=== PATIENT | female | born 1965 | race Caucasian/White ===

== ENCOUNTER 2018-04-28 21:00 | Emergency (ER) | payer OTHER ==
[~2018-04-28] VITALS: Ht 149.9 cm; Wt 87.1 kg
[~2018-04-28 21:00] MED LIST: ACETAMINOPHEN-1 EAC1 PO; AMOXICILLIN500 M1 PO; ASPIR-TRIN325 MG PO; BLOOD PRESSURE MED; CHOLESTEROL MED; COLACE100 MG PO; LEVOTHYROXINE0.05 MG PO; LIPITOR 20 MG T20 M1 PO; NOHOMEMEDICATIONS; NORCO 5-325 TA1 EACH PO; NORVASC5 MG PO; PRINIVIL20 MG PO; PROAIR HFA8.5 GM PO; PROMETHAZINE-C120 ML PO; ROBAXIN500 MG PO; TESSALON PERLE100 MG PO; VENTOLIN HFA 1818 GM INH; XARELTO10 MG PO
[2018-04-28] MEDS ORDERED: KEFLEX500 M1 PO (21:58)
[2018-04-28] MEDS ORDERED: MEDROLDOSEPACK PO (21:58)
[2018-04-28 22:13] VITALS: BP 152/56
== END 2018-04-28 22:15 | disposition home or self-care (01) ==
LOC: M.ERS 21:00
DX: J02.0 Streptococcal pharyngitis (principal); M79.671 Pain in right foot; M67.432 Ganglion, left wrist; E11.9 Type 2 diabetes mellitus without complications; I10 Essential (primary) hypertension; E78.5 Hyperlipidemia, unspecified; F17.210 Nicotine dependence, cigarettes, uncomplicated

== ENCOUNTER 2018-06-23 16:07 | Emergency (ER) | payer OTHER ==
[~2018-06-23] VITALS: Ht 152.4 cm; Wt 84.4 kg
[~2018-06-23 16:07] MED LIST changes: +KEFLEX500 M1 PO; +MEDROLDOSEPACK PO
[2018-06-23 16:29] LABS: URINE BILIRUBIN NEGATIVE (Negative); URINE BLOOD TRACE (Negative); URINE CLARITY CLEAR; URINE COLOR YELLOW; URINE GLUCOSE-RANDOM NEGATIVE (Negative); URINE KETONES NEGATIVE (Negative); URINE LEUKOCYTES-REFLEX NEGATIVE (Negative); URINE NITRITE-REFLEX NEGATIVE (Negative); URINE PROTEIN NEGATIVE (Negative); URINE SPECIFIC GRAVITY >= 1.030 (1.005-1.030); URINE UROBILINOGEN 0.2 E.U./dl (0.2-1.0)
[2018-06-23 16:43] LABS: BACTERIA-REFLEX 1-9 Few /HPF (None Seen); CASTS None Seen /LPF (None Seen); CRYSTALS None Seen /LPF (None Seen); SQUAMOUS >10 Many /LPF (0-3); URINE RBC 0-2 Rare /HPF (0-2); URINE WBC-REFLEX 0-5 Rare /HPF (0-5)
[2018-06-23] MEDS ORDERED: NAPROSYN500 MG PO (16:50)
[2018-06-23] MEDS ORDERED: ZYRTEC10 M4 PO (16:50)
[2018-06-23] MEDS ORDERED: ROBAXIN500 MG PO (16:54)
[2018-06-23 17:01] VITALS: BP 150/55
== END 2018-06-23 17:02 | disposition home or self-care (01) ==
LOC: M.ERS 16:07
PROVIDERS: Nurse Practitioner Family
DX: M54.5 Low back pain (principal); I10 Essential (primary) hypertension; E78.5 Hyperlipidemia, unspecified; F17.210 Nicotine dependence, cigarettes, uncomplicated

== ENCOUNTER 2018-11-03 15:19 | Emergency (ER) | payer OTHER ==
[~2018-11-03] VITALS: Ht 152.4 cm; Wt 88.0 kg
[~2018-11-03 15:19] MED LIST changes: +NAPROSYN500 MG PO; +ZYRTEC10 M4 PO
[2018-11-03 16:32] LABS: INFLUENZA A ANTIGEN None Detected (None Detect); INFLUENZA B ANTIGEN None Detected (None Detect)
[2018-11-03] MEDS ORDERED: MEDROLDOSEPACK PO (18:02)
[2018-11-03] MEDS ORDERED: PENICILLIN VK500 MG PO (18:02)
[2018-11-03] MEDS ORDERED: VENTOLIN HFA 1818 GM INH (18:02)
[2018-11-03 18:10] VITALS: BP 119/38
== END 2018-11-03 18:11 | disposition home or self-care (01) ==
LOC: M.ERS 15:19
PROVIDERS: Nurse Practitioner Family
DX: J40 Bronchitis, not specified as acute or chronic (principal); I10 Essential (primary) hypertension; E78.5 Hyperlipidemia, unspecified; F17.210 Nicotine dependence, cigarettes, uncomplicated

== ENCOUNTER 2019-04-15 18:16 | Emergency (ER) | payer OTHER ==
[~2019-04-15] VITALS: Ht 152.4 cm; Wt 87.1 kg
[~2019-04-15 18:16] MED LIST changes: +PENICILLIN VK500 MG PO
[2019-04-15 19:13] LABS: ABSOLUTE EOSINOPHILS 0.2 thou/uL (0.0-0.7); ABSOLUTE LYMPHOCYTES 3.3 thou/uL (0.8-5.3); ABSOLUTE MONOCYTES 0.6 thou/uL (0.0-1.2); BASOPHILS 0.4 %; EOSINOPHILS 2.1 %; HEMOGLOBIN 15.1 gm/dL (12.0-15.0); LYMPHOCYTES 40.3 %; MCH 32.7 pg (26.0-34.0); MCHC 33.7 g/dL (28.0-37.0); MONOCYTES 7.8 %; MPV 8.8 fl. (7.2-11.1); NUCLEATED RBCS 0 /100WBC; PLATELET COUNT* 237 thou/uL (150-400); POLYS 49.4 %; RBC 4.64 mil/uL (4.20-5.00); RDW-CV 14.1 % (10.5-14.5); WBC 8.1 thou/uL (4.0-11.0)
[2019-04-15 19:22] LABS: CALCIUM 9.1 mg/dL (8.5-10.1); CREATININE 0.8 mg/dL (0.6-1.3); POTASSIUM 4.1 mmol/L (3.5-5.1)
[2019-04-15 19:22] LABS: URINE BILIRUBIN NEGATIVE (Negative); URINE BLOOD NEGATIVE (Negative); URINE CLARITY CLEAR; URINE COLOR YELLOW; URINE GLUCOSE-RANDOM NEGATIVE (Negative); URINE KETONES NEGATIVE (Negative); URINE LEUKOCYTES-REFLEX NEGATIVE (Negative); URINE NITRITE-REFLEX NEGATIVE (Negative); URINE PROTEIN NEGATIVE (Negative); URINE SPECIFIC GRAVITY >= 1.030 (1.005-1.030); URINE UROBILINOGEN 0.2 E.U./dl (0.2-1.0)
[2019-04-15 19:27] LABS: ALBUMIN 3.7 g/dL (3.4-5.0); TOTAL BILIRUBIN 0.3 mg/dL (<0.1-1.0); TOTAL PROTEIN 7.6 g/dL (6.4-8.2)
[2019-04-15 20:07] LABS: ESR (SEDRATE) 8 mm/hr (0-30)
[2019-04-15 20:48] VITALS: BP 119/61
== END 2019-04-15 20:49 | disposition home or self-care (01) ==
LOC: M.ERS 18:16
PROVIDERS: Nurse Practitioner Family
DX: R51 Headache (principal); E86.0 Dehydration; F17.210 Nicotine dependence, cigarettes, uncomplicated; I10 Essential (primary) hypertension; E11.9 Type 2 diabetes mellitus without complications; E78.5 Hyperlipidemia, unspecified

== ENCOUNTER 2019-06-14 21:52 | Emergency (ER) | payer OTHER ==
[~2019-06-14] VITALS: Ht 152.4 cm; Wt 87.1 kg
[2019-06-14] MEDS ORDERED: FLEXERIL PO (22:12)
[2019-06-14] MEDS ORDERED: NORCO 5-325 TA1 EAC1 PO (22:12)
[2019-06-14 22:19] VITALS: BP 148/62
== END 2019-06-14 22:19 | disposition home or self-care (01) ==
LOC: M.ERS 21:52
DX: S16.1XXA Strain of muscle, fascia and tendon at neck level, initial encounter (principal); F17.210 Nicotine dependence, cigarettes, uncomplicated; I10 Essential (primary) hypertension; E11.9 Type 2 diabetes mellitus without complications; E78.5 Hyperlipidemia, unspecified; X50.0XXA Overexertion from strenuous movement or load, initial encounter; Y92.89 Other specified places as the place of occurrence of the external cause; Y99.0 Civilian activity done for income or pay; Y99.8 Other external cause status

== ENCOUNTER 2019-07-08 15:31 | Emergency (ER) | payer OTHER ==
[~2019-07-08] VITALS: Ht 152.4 cm; Wt 87.1 kg
[~2019-07-08 15:31] MED LIST changes: +FLEXERIL PO; +NORCO 5-325 TA1 EAC1 PO
[2019-07-08 16:05] LABS: ABSOLUTE BASOPHILS 0.1 thou/uL (0.0-0.2); ABSOLUTE EOSINOPHILS 0.2 thou/uL (0.0-0.7); ABSOLUTE LYMPHOCYTES 2.7 thou/uL (0.8-5.3); ABSOLUTE MONOCYTES 0.6 thou/uL (0.0-1.2); ABSOLUTE NEUTROPHILS 4.5 thou/uL (1.6-8.1); BASOPHILS 1.1 %; EOSINOPHILS 2.1 %; HEMATOCRIT 44.1 % (37.0-47.0); HEMOGLOBIN 14.9 gm/dL (12.0-15.0); LYMPHOCYTES 33.2 %; MCH 33.2 pg (26.0-34.0); MCHC 33.7 g/dL (28.0-37.0); MCV 98.5 fL (80.0-100.0); MONOCYTES 7.9 %; MPV 8.6 fl. (7.2-11.1); NUCLEATED RBCS 0 /100WBC; PLATELET COUNT* 224 thou/uL (150-400); POLYS 55.7 %; RBC 4.48 mil/uL (4.20-5.00)
[2019-07-08 16:12] LABS: POTASSIUM 4.2 mmol/L (3.5-5.1)
[2019-07-08 16:17] LABS: ALBUMIN 3.6 g/dL (3.4-5.0); TOTAL BILIRUBIN 0.3 mg/dL (<0.1-1.0); TOTAL PROTEIN 7.2 g/dL (6.4-8.2)
[2019-07-08] MEDS ORDERED: NORCO 5-325 TA1 EAC1 PO (17:03)
[2019-07-08 17:10] VITALS: BP 125/80
== END 2019-07-08 17:11 | disposition home or self-care (01) ==
LOC: M.ERS 15:31
PROVIDERS: Family Medicine
DX: M25.561 Pain in right knee (principal); I10 Essential (primary) hypertension; E78.5 Hyperlipidemia, unspecified; F17.210 Nicotine dependence, cigarettes, uncomplicated

== ENCOUNTER → 2019-07-09 | Outpatient (CLI) | payer OTHER ==
[2019-07-10 02:06] LABS: GLYCOHEMOGLOBIN (HGB A1C) 5.8 % (4.8-5.6)
== END ==
LOC: M.LAB 09:35
PROVIDERS: Nurse Practitioner Family
DX: R73.09 Other abnormal glucose (principal); E03.9 Hypothyroidism, unspecified; Z86.39 Personal history of other endocrine, nutritional and metabolic disease

== ENCOUNTER 2020-03-03 16:49 | Emergency (ER) | payer OTHER ==
[~2020-03-03] VITALS: Ht 154.9 cm; Wt 83.5 kg
[2020-03-03 17:20] LABS: ABSOLUTE BASOPHILS 0.1 thou/uL (0.0-0.2); ABSOLUTE EOSINOPHILS 0.2 thou/uL (0.0-0.7); ABSOLUTE LYMPHOCYTES 3.3 thou/uL (0.8-5.3); ABSOLUTE MONOCYTES 0.7 thou/uL (0.0-1.2); ABSOLUTE NEUTROPHILS 4.5 thou/uL (1.6-8.1); BASOPHILS 1.2 %; EOSINOPHILS 2.4 %; HEMATOCRIT 42.2 % (37.0-47.0); HEMOGLOBIN 14.6 gm/dL (12.0-15.0); LYMPHOCYTES 37.2 %; MCH 33.9 pg (26.0-34.0); MCHC 34.6 g/dL (28.0-37.0); MCV 98.2 fL (80.0-100.0); MONOCYTES 8.3 %; MPV 9.3 fl. (7.2-11.1); NUCLEATED RBCS 0 /100WBC; PLATELET COUNT* 217 thou/uL (150-400); POLYS 50.9 %; RDW-CV 14.4 % (10.5-14.5); WBC 8.9 thou/uL (4.0-11.0)
[2020-03-03 17:38] LABS: ALBUMIN 3.9 g/dL (3.4-5.0); CALCIUM 9.3 mg/dL (8.5-10.1); CREATININE 0.7 mg/dL (0.6-1.3); MAGNESIUM 1.9 mg/dL (1.8-2.4); TOTAL BILIRUBIN 0.4 mg/dL (<0.1-1.0); TOTAL PROTEIN 7.7 g/dL (6.4-8.2)
[2020-03-03 18:24] VITALS: BP 170/64
--- NOTE | 2020-03-04 10:16 | EKG ---
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
== END 2020-03-03 18:26 | disposition home or self-care (01) ==
LOC: M.ERS 16:49
PROVIDERS: Emergency Medicine Emergency Medical Services
DX: S50.12XA Contusion of left forearm, initial encounter (principal); S30.1XXA Contusion of abdominal wall, initial encounter; R00.2 Palpitations; I10 Essential (primary) hypertension; E11.9 Type 2 diabetes mellitus without complications; E78.5 Hyperlipidemia, unspecified; F17.210 Nicotine dependence, cigarettes, uncomplicated; X58.XXXA Exposure to other specified factors, initial encounter; Y93.89 Activity, other specified; Y92.89 Other specified places as the place of occurrence of the external cause; Y99.8 Other external cause status

== ENCOUNTER → 2020-04-06 | Outpatient (CLI) | payer OTHER ==
--- NOTE | 2020-04-06 11:27 | 2DMMODE ---
[place] [address] 2 D/M-MODE ECHOCARDIOGRAM Name: PHILLIP LOPEZ Room: [facility]#: [id number] Admission: 04/06/20 Attend Phys: Dung Reddy MD Discharge: Date of : 61 Date of Service: 04/06/20 1126 Report #: [id number] THIS REPORT FOR: cc: Jessy Zee Linda J. DO Holkins,Mariano Ball MD [facility] ~ APPROVED REPORT Study performed: 04/06/2020 08:49:53 EXAM: Comprehensive 2D, Doppler, and color-flow Echocardiogram Patient Location: Out-Patient BSA: 1.87 HR: 75 bpm Other Information Study Quality: Fair Indications Dyspnea 2D Dimensions IVSd: 11.25 (7-11mm) LVOT Diam: 19.66 (18-24mm) LVDd: 43.65 mm PWd: 9.21 (7-11mm) Ascending Ao: 26.62 (22-36mm) LVDs: 27.17 (25-40mm) Aortic Root: 25.84 mm Volumes Left Atrial Volume (Systole) LA ESV Index: 14.80 mL/m2 Aortic Valve AoV Peak Mykel.: 1.73 m/s AO Peak Gr.: 11.96 mmHg LVOT Max P.80 mmHg AO Mean Gr.: 6.65 mmHg LVOT Mean P.51 mmHg LVOT Max V: 1.10 m/s AO V2 VTI: 37.73 cm LVOT Mean V: 0.74 m/s FAWN (VTI): 2.13 cm2 LVOT V1 VTI: 26.46 cm Mitral Valve E/A Ratio: 1.60 [place] [address] 2 D/M-MODE ECHOCARDIOGRAM Name: PHILLIP LOPEZ Room: [facility]#: [id number] Admission: 04/06/20 Attend Phys: Dung Reddy MD Discharge: Date of : 61 Date of Service: 04/06/20 1126 Report #: [id number] MV Decel. Time: 178.19 ms MV E Max Mykel.: 1.13 m/s MV PHT: 51.67 ms MVA (PHT): 4.26 cm2 TDI E/Lateral E': 7.53 E/Medial E': 8.69 Medial E' Mykel.: 0.13 m/s Lateral E' Mykel.: 0.15 m/s Pulmonary Valve PV Peak Mykel.: 1.19 m/s PV Peak Gr.: 5.66 mmHg Left Ventricle The left ventricle is normal size. There is normal LV segmental wall motion. There is normal left ventricular wall thickness. Left ventricular systolic function is normal. The left ventricular ejection fraction is within the normal range. LVEF is 55-60%. The left ventricular diastolic function is normal. Right Ventricle The right ventricle is normal size. The right ventricular systolic function is normal. Atria The left atrium size is normal. The right atrium size is normal. Aortic Valve Mild aortic valve sclerosis. No aortic regurgitation is present. There is no aortic valvular stenosis. Mitral Valve Mild mitral annular calcification. There is no mitral valve regurgitation noted. No evidence of mitral valve stenosis. Tricuspid Valve The tricuspid valve is normal in structure. There is no tricuspid valve regurgitation noted. Pulmonic Valve The pulmonary valve is normal in structure. There is no pulmonic valvular regurgitation. Great Vessels The aortic root is normal in size. IVC [place] [address] 2 D/M-MODE ECHOCARDIOGRAM Name: BESSIE LOPEZKIE Drew Room: [facility]#: [id number] Admission: 04/06/20 Attend Phys: Dung Reddy MD Discharge: Date of : 61 Date of Service: 04/06/20 1126 Report #: [id number] collapses >50% with inspiration. Pericardium There is no pericardial effusion. <Conclusion> The left ventricle is normal size. Left ventricular systolic function is normal. The left ventricular ejection fraction is within the normal range. LVEF is 55-60%. The left ventricular diastolic function is normal. The right ventricle is normal size. The left atrium size is normal. Mild aortic valve sclerosis. No aortic regurgitation is present. There is no aortic valvular stenosis. Mild mitral annular calcification. There is no mitral valve regurgitation noted. No evidence of mitral valve stenosis. The tricuspid valve is normal in structure. IVC is normal in size and collapses >50% with inspiration. There is no pericardial effusion. <ELECTRONICALLY SIGNED> By: Mariano Max MD, FACC 04/06/20 1126 1126 1126 Mariano Max MD, FACC /INF
== END ==
LOC: M.CRD 08:47
PROVIDERS: ATTEND Internal Medicine Cardiovascular Disease
DX: I08.0 Rheumatic disorders of both mitral and aortic valves (principal)

== ENCOUNTER → 2020-04-20 | Outpatient (CLI) | payer OTHER ==
[2020-04-20 12:03] LABS: ABSOLUTE EOSINOPHILS 0.1 thou/uL (0.0-0.7); ABSOLUTE LYMPHOCYTES 2.5 thou/uL (0.8-5.3); EOSINOPHILS 1.6 %; MPV 8.6 fl. (7.2-11.1); RDW-CV 14.5 % (10.5-14.5)
[2020-04-20 12:05] LABS: ABSOLUTE BASOPHILS 0.1 thou/uL (0.0-0.2); ABSOLUTE MONOCYTES 0.5 thou/uL (0.0-1.2); ABSOLUTE NEUTROPHILS 5.3 thou/uL (1.6-8.1); HEMOGLOBIN 14.9 gm/dL (12.0-15.0); LYMPHOCYTES 29.4 %; MCH 34.4 pg (26.0-34.0); MCHC 34.6 g/dL (28.0-37.0); MCV 99.3 fL (80.0-100.0); MONOCYTES 5.6 %; NUCLEATED RBCS 0 /100WBC; PLATELET COUNT* 234 thou/uL (150-400); POLYS 62.4 %; RBC 4.33 mil/uL (4.20-5.00); WBC 8.5 thou/uL (4.0-11.0)
[2020-04-20 12:23] LABS: ALBUMIN 3.6 g/dL (3.4-5.0); CREATININE 0.7 mg/dL (0.6-1.3); POTASSIUM 4.5 mmol/L (3.5-5.1); TOTAL BILIRUBIN 0.3 mg/dL (<0.1-1.0); TOTAL PROTEIN 7.4 g/dL (6.4-8.2)
[2020-04-21 02:06] LABS: GLYCOHEMOGLOBIN (HGB A1C) 5.9 % (4.8-5.6)
== END ==
LOC: M.LAB 11:36
PROVIDERS: ATTEND Nurse Practitioner Family
DX: L81.9 Disorder of pigmentation, unspecified (principal); I10 Essential (primary) hypertension; E03.9 Hypothyroidism, unspecified; R73.03 Prediabetes

== ENCOUNTER → 2020-05-09 | Outpatient (CLI) | payer OTHER ==
[2020-05-09 11:27] LABS: CHOLESTEROL 282 mg/dL (<200); HDL CHOLESTEROL 31 mg/dL (>40); LDL CHOLESTEROL 219 mg/dL (<100); TC:HDL 9.1 Ratio (Not establshd); TRIGLYCERIDE 161 mg/dL (<150); VLDL 32 mg/dL (<40)
[2020-05-09 11:30] LABS: SERUM ASSESSMENT Clear
== END ==
LOC: M.LAB 11:02
PROVIDERS: ATTEND Registered Nurse
DX: R06.02 Shortness of breath (principal)

== ENCOUNTER → 2020-06-08 | Outpatient (CLI) | payer OTHER ==
[2020-06-08 10:08] LABS: ABSOLUTE BASOPHILS 0.1 thou/uL (0.0-0.2); ABSOLUTE EOSINOPHILS 0.2 thou/uL (0.0-0.7); ABSOLUTE LYMPHOCYTES 2.7 thou/uL (0.8-5.3); ABSOLUTE MONOCYTES 0.6 thou/uL (0.0-1.2); ABSOLUTE NEUTROPHILS 4.4 thou/uL (1.6-8.1); BASOPHILS 1.3 %; EOSINOPHILS 2.6 %; HEMATOCRIT 43.8 % (37.0-47.0); HEMOGLOBIN 14.9 gm/dL (12.0-15.0); LYMPHOCYTES 33.2 %; MCH 33.8 pg (26.0-34.0); MCHC 34.1 g/dL (28.0-37.0); MCV 99.3 fL (80.0-100.0); MONOCYTES 7.9 %; NUCLEATED RBCS 0 /100WBC; PLATELET COUNT* 218 thou/uL (150-400); RBC 4.41 mil/uL (4.20-5.00); RDW-CV 14.1 % (10.5-14.5); WBC 8.1 thou/uL (4.0-11.0)
[2020-06-08 10:34] LABS: % SATURATION 21 % (20-39); IRON 73 ug/dL (50-175)
== END ==
LOC: M.LAB 09:51
PROVIDERS: ATTEND Nurse Practitioner Family
DX: K92.1 Melena (principal)

== ENCOUNTER 2020-10-24 18:16 | Emergency (ER) | payer OTHER ==
[~2020-10-24] VITALS: Ht 149.9 cm; Wt 84.8 kg
[2020-10-24] MEDS ORDERED: ZESTRIL20 MG PO (18:25)
[2020-10-24] MEDS ORDERED: CHOLESTEROL MED (18:26)
[2020-10-24 19:06] LABS: ABSOLUTE BASOPHILS 0.1 thou/uL (0.0-0.2); ABSOLUTE EOSINOPHILS 0.4 thou/uL (0.0-0.7); ABSOLUTE MONOCYTES 0.7 thou/uL (0.0-1.2); ABSOLUTE NEUTROPHILS 5.6 thou/uL (1.6-8.1); BASOPHILS 1.1 %; EOSINOPHILS 3.3 %; HEMATOCRIT 43.7 % (37.0-47.0); HEMOGLOBIN 14.6 gm/dL (12.0-15.0); LYMPHOCYTES 37.3 %; MCH 32.6 pg (26.0-34.0); MCHC 33.3 g/dL (28.0-37.0); MCV 97.9 fL (80.0-100.0); MONOCYTES 6.7 %; MPV 8.6 fl. (7.2-11.1); NUCLEATED RBCS 0 /100WBC; PLATELET COUNT* 229 thou/uL (150-400); POLYS 51.6 %; RBC 4.46 mil/uL (4.20-5.00); RDW-CV 14.1 % (10.5-14.5); WBC 10.8 thou/uL (4.0-11.0)
[2020-10-24 19:15] LABS: CALCIUM 9.5 mg/dL (8.5-10.1); CREATININE 0.8 mg/dL (0.6-1.3); POTASSIUM 4.6 mmol/L (3.5-5.1)
[2020-10-24 19:17] LABS: APTT 24.8 Seconds (25.0-31.3); PROTIME 10.4 Seconds (9.20-11.50)
[2020-10-24 19:26] LABS: ALBUMIN 3.7 g/dL (3.4-5.0); TOTAL BILIRUBIN 0.2 mg/dL (<0.1-1.0); TOTAL PROTEIN 7.5 g/dL (6.4-8.2)
[2020-10-24 19:55] LABS: BE -0.2 mmol/L (-2 to +3); PCO2 42.9 mmHg (35.0-45.0); PO2 76.8 mmHg (75.0-100.0); pH 7.383 (7.340-7.450)
[2020-10-24 20:18] VITALS: BP 118/72
--- NOTE | 2020-10-25 10:09 | EKG ---
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[place] : 1965 Requested By: Chi Cha Order Number: [id number] MD: Mariano Max Measurements Intervals [place] Rate: 71 P: 77 [place]: 151 QRS: 69 QRSD: 98 T: 51 QT: 416 QTc: 453 Interpretive Statements Sinus rhythm Baseline wander in lead(s) V2,V6 Compared to ECG 03/03/2020 16:56:18 No significant changes Electronically Signed On 10-25-2020 10:09:09 [employer]NALY[employer] by Mariano Max [email or web address] <ELECTRONICALLY SIGNED> By: Mariano Max MD, [facility] 10/25/20 1009 1827 182 Mariano Max MD, [facility] /EPI
== END 2020-10-24 20:18 | disposition home or self-care (01) ==
LOC: M.ERS 18:16
PROVIDERS: Family Medicine; Personal Emergency Response Attendant
DX: R42 Dizziness and giddiness (principal); Z77.128 Contact with and (suspected) exposure to other hazards in the physical environment; I10 Essential (primary) hypertension; E78.5 Hyperlipidemia, unspecified; F17.210 Nicotine dependence, cigarettes, uncomplicated

== ENCOUNTER → 2020-12-19 | Outpatient (CLI) | payer OTHER ==
[~2020-12-19] MED LIST changes: +ZESTRIL20 MG PO
[2020-12-19 13:15] LABS: ABSOLUTE BASOPHILS 0.1 thou/uL (0.0-0.2); ABSOLUTE EOSINOPHILS 0.2 thou/uL (0.0-0.7); ABSOLUTE LYMPHOCYTES 2.8 thou/uL (0.8-5.3); ABSOLUTE MONOCYTES 0.3 thou/uL (0.0-1.2); ABSOLUTE NEUTROPHILS 5.3 thou/uL (1.6-8.1); BASOPHILS 1.4 %; EOSINOPHILS 2.1 %; HEMATOCRIT 43.9 % (37.0-47.0); HEMOGLOBIN 14.7 gm/dL (12.0-15.0); MCH 32.8 pg (26.0-34.0); MCHC 33.6 g/dL (28.0-37.0); MCV 97.6 fL (80.0-100.0); MONOCYTES 3.5 %; MPV 8.4 fl. (7.2-11.1); NUCLEATED RBCS 0 /100WBC; PLATELET COUNT* 197 thou/uL (150-400); RDW-CV 14.7 % (10.5-14.5); WBC 8.7 thou/uL (4.0-11.0)
[2020-12-19 13:34] LABS: ALBUMIN 3.4 g/dL (3.4-5.0); CALCIUM 9.4 mg/dL (8.5-10.1); CREATININE 0.7 mg/dL (0.6-1.3); MAGNESIUM 1.8 mg/dL (1.8-2.4); POTASSIUM 3.9 mmol/L (3.5-5.1); TOTAL BILIRUBIN 0.3 mg/dL (<0.1-1.0); TOTAL PROTEIN 7.4 g/dL (6.4-8.2)
[2020-12-19 14:23] LABS: ESR (SEDRATE) 23 mm/hr (0-30)
[2020-12-20 02:06] LABS: GLYCOHEMOGLOBIN (HGB A1C) 6.6 % (4.8-5.6)
== END ==
LOC: M.LAB 12:09
PROVIDERS: ATTEND Nurse Practitioner Family
DX: R06.02 Shortness of breath (principal); R35.0 Frequency of micturition; Z11.59 Encounter for screening for other viral diseases; Z77.098 Contact with and (suspected) exposure to other hazardous, chiefly nonmedicinal, chemicals

== ENCOUNTER → 2021-01-05 | Outpatient (CLI) | payer OTHER | LOC: M.LAB 16:02 | PROVIDERS: ATTEND Internal Medicine Critical Care Medicine | DX: R06.02 Shortness of breath (principal) ==